=== PATIENT | female | born 1985 | race Caucasian/White ===

== ENCOUNTER 2017-08-22 16:40 | Emergency (ER) | payer SELFPAY ==
--- NOTE | 2017-08-22 18:02 | ER Document Report ---
ED Medical Screen (RME) - General Chief Complaint: Drug Abuse Stated Complaint: SUBSTANCE ABUSE Time Seen by Provider: 08/22/17 17:54 Notes: 31-year-old female past medical history heroin abuse (last used 24 hours ago) here with complaints of diarrhea and feeling anxious. She states that she is seeking help and would like to quit heroin for good. She states that she thinks she is several months and cannot remember date of her last menses. She denies any abdominal pain vaginal bleeding/discharge nausea vomiting. She is here voluntarily. EXAM Gravid abdomen Anxious appearing TRAVEL OUTSIDE OF THE U.S. IN LAST 30 DAYS: No - Related Data Allergies/Adverse Reactions: Penicillins Allergy (Verified 08/22/17 16:46) Home Medications: Current Home Medications No Home Medications 08/22/17 [History] Past Medical History - Social History Frequency of alcohol use: Rare Drug Abuse: Cocaine, Heroin Renal/ Medical History: Denies: Hx Peritoneal Dialysis Musculoskeltal Medical History: Reports Hx Arthritis, Reports Hx Musculoskeletal Deformity - hx of bulging spinal disks in mid/lower back Psychiatric Medical History: Reports: Hx Anxiety Past Surgical History: Reports: Hx Oral Surgery - [place] teeth - Immunizations Hx Diphtheria, Pertussis, Tetanus Vaccination: Yes Physical Exam - Vital signs Vitals: Temp Pulse Resp BP Pulse Ox 98.6 F 85 16 124/85 100 08/22/17 16:57 08/22/17 16:57 08/22/17 16:57 08/22/17 16:57 08/22/17 16:57 Course - Vital Signs Vital signs: Temp Pulse Resp BP Pulse Ox 98.6 F 85 16 124/85 100 08/22/17 16:57 08/22/17 16:57 08/22/17 16:57 08/22/17 16:57 08/22/17 16:57
[2017-08-22 18:33] LABS: APPEARANCE,URINE CLOUDY; BILIRUBIN,URINE NEGATIVE (NEGATIVE); COLOR,URINE YELLOW; GLUCOSE, URINE NEGATIVE (NEGATIVE); KETONES,URINE NEGATIVE (NEGATIVE); LEUKOCYTE ESTERASE,URINE NEGATIVE (NEGATIVE); NITRITE,URINE NEGATIVE (NEGATIVE); PROTEIN,URINE NEGATIVE (NEGATIVE); URINE SPECIFIC GRAVITY 1.018; UROBILINOGEN,URINE NEGATIVE mg/dL (<2.0)
[2017-08-22 18:39] LABS: ABSOLUTE EOSINOPHILS # (AUTO) 0.1 10^3/uL (0.0-0.6); ABSOLUTE LYMPHOCYTES (AUTO) 1.9 10^3/uL (0.5-4.7); ABSOLUTE MONOCYTES (AUTO) 0.4 10^3/uL (0.1-1.4); BASOPHILS % (AUTO) 0.7 % (0-2); EOSINOPHILS % (AUTO) 1.9 % (0-6); HEMATOCRIT 32.1 % (36.0-47.0); HEMOGLOBIN 10.7 g/dL (12.0-15.5); LYMPHOCYTES % (AUTO) 29.2 % (13-45); MEAN CORPUSCULAR HEMOGLOBIN 31.4 pg (27.0-33.4); MEAN CORPUSCULAR HGB CONC 33.4 g/dL (32.0-36.0); MEAN CORPUSCULAR VOLUME 94 fl (80-97); MONOCYTES % (AUTO) 6.6 % (3-13); PLATELET COUNT 203 10^3/uL (150-450); RED BLOOD COUNT 3.41 10^6/uL (3.72-5.28); RED CELL DISTRIBUTION WIDTH 15.8 % (11.5-14.0); SEGMENTED NEUTROPHILS % (AUTO) 61.6 % (42-78); TOTAL CELLS COUNTED % (AUTO) 100 %; WHITE BLOOD COUNT 6.4 10^3/uL (4.0-10.5)
[2017-08-22 18:45] LABS: URINE AMPHETAMINES SCREEN NEGATIVE; URINE BARBITURATES SCREEN NEGATIVE; URINE BENZODIAZEPINES SCREEN NEGATIVE; URINE COCAINE SCREEN UNCONFIRMED POSITIVE; URINE MARIJUANA (THC) SCREEN UNCONFIRMED POSITIVE; URINE METHADONE SCREEN NEGATIVE; URINE PHENCYCLIDINE SCREEN NEGATIVE
[2017-08-22 19:00] LABS: ALANINE AMINOTRANSFERASE 17 U/L (9-52); ALBUMIN 3.6 g/dL (3.5-5.0); ALKALINE PHOSPHATASE 61 U/L (38-126); ANION GAP 10 (5-19); ASPARTATE AMINO TRANSFERASE 12 U/L (14-36); BLOOD UREA NITROGEN 8 mg/dL (7-20); CALCIUM 8.6 mg/dL (8.4-10.2); CARBON DIOXIDE 21 mmol/L (22-30); CHLORIDE 106 mmol/L (98-107); GLUCOSE 82 mg/dL (75-110); POTASSIUM 3.5 mmol/L (3.6-5.0); SODIUM 136.9 mmol/L (137-145); TOTAL PROTEIN 6.4 g/dL (6.3-8.2)
[2017-08-22 19:02] LABS: BILIRUBIN,TOTAL < 0.1 mg/dL (0.2-1.3)
[2017-08-22 19:03] LABS: ACETAMINOPHEN < 10 ug/mL (10-30); ALCOHOL < 10 mg/dL (NONE DETECTED); SALICYLATE < 1.0 mg/dL (2.0-20.0)
[2017-08-22] MEDS ORDERED: POTASSIUM CHLORIDE 10 MEQ TABLET.SA PO ONE (19:23)
--- NOTE | 2017-08-22 20:51 | ER Document Report ---
ED Substance Abuse / Acc. OD - General Chief Complaint: Drug Abuse Stated Complaint: SUBSTANCE ABUSE Time Seen by Provider: 08/22/17 17:54 Mode of Arrival: Ambulatory Information source: Patient Notes: Patient presents reporting that she is concerned that she is . Patient states her last menstrual period was about 5 months ago. Patient is uncertain exactly how far long she may be. Patient does report a history of cocaine, marijuana and heroin abuse. Patient states that she wants to seek treatment for heroin abuse as she just realized that she is . Patient does report some mild diarrhea and feeling anxious. Patient does report cough and cold symptoms for the past 2 weeks. Patient states cough has been productive. Patient denies any fever. Patient does report movement. Patient denies any urinary symptoms, vaginal bleeding or discharge. TRAVEL OUTSIDE OF THE [place].S. IN LAST 30 DAYS: No - HPI Patient complains to provider of: Substance abuse, Substance withdrawal Onset: This morning Onset/Duration: Gradual Quality of pain: Achy Pain Level: 2 Associated Symptoms: Diarrhea. denies: Hurts to breathe, Short of breath, Nausea/vomiting, Tremors, Fainting Similar symptoms previously: Yes Recently seen / treated by doctor: No - Related Data Allergies/Adverse Reactions: Penicillins Allergy (Verified 08/22/17 16:46) Past Medical History - General Information source: Patient - Social History Smoking Status: Current Every Day Smoker Smoking Education Provided: Yes Frequency of alcohol use: Rare Drug Abuse: Cocaine, Heroin, Marijuana Occupation: None Family History: Arthritis, CAD, CVA, DM, Hyperlipidemia, Hypertension, Malignancy, Thyroid Disfunction Patient has suicidal ideation: No Patient has homicidal ideation: No Renal/ Medical History: Denies: Hx Peritoneal Dialysis Musculoskeltal Medical History: Reports Hx Arthritis, Reports Hx Musculoskeletal Deformity - hx of bulging spinal disks in mid/lower back Psychiatric Medical History: Reports: Hx Anxiety Past Surgical History: Reports: Hx Oral Surgery - [place] teeth - Immunizations Hx Diphtheria, Pertussis, Tetanus Vaccination: Yes Review of Systems - Review of Systems Constitutional: No symptoms reported. denies: Fever EENT: Nose congestion Cardiovascular: denies: Chest pain, Dizziness Respiratory: Cough. denies: Short of breath Gastrointestinal: Diarrhea. denies: Abdominal pain, Nausea, Vomiting Genitourinary: No symptoms reported. denies: Dysuria, Flank pain Female Genitourinary: . denies: Vaginal discharge, Vaginal bleeding Musculoskeletal: Back pain Skin: No symptoms reported Hematologic/Lymphatic: No symptoms reported Neurological/Psychological: No symptoms reported. denies: Homicidal ideation, Headaches, Suicidal ideation Physical Exam - Vital signs Vitals: Temp Pulse Resp BP Pulse Ox 98.6 F 85 16 124/85 100 08/22/17 16:57 08/22/17 16:57 08/22/17 16:57 08/22/17 16:57 08/22/17 16:57 - General General appearance: Appears well, Alert In distress: None - HEENT Head: Normocephalic, Atraumatic Eyes: Normal Conjunctiva: Normal Nasal: Normal Mouth/Lips: Normal Mucous membranes: Normal Pharynx: Normal. No: Erythema, Exudate Neck: Normal, Supple. No: Lymphadenopathy - Respiratory Respiratory status: No respiratory distress Chest status: Nontender Breath sounds: Nonproductive cough, Rhonchi. No: Rales, Stridor, Wheezing Chest palpation: Normal - Cardiovascular Rhythm: Regular Heart sounds: S1 appreciated, S2 appreciated Murmur: No - Abdominal Inspection: Gravid female Distension: No distension Bowel sounds: Normal Tenderness: Nontender Organomegaly: No organomegaly - Back Back: Normal, Nontender. No: CVA tenderness - Extremities General upper extremity: Normal inspection, Normal ROM General lower extremity: Normal inspection, Normal ROM - Neurological Neuro grossly intact: Yes Cognition: Normal [place] Coma Scale Eye Opening: Spontaneous [place] Coma Scale Verbal: Oriented [place] Coma Scale Motor: Obeys Commands [place] Coma Scale Total: 15 - Psychological Associated symptoms: Normal affect, Normal mood - Skin Skin Temperature: Warm Skin Moisture: Dry Skin Color: Normal Course - Re-evaluation Re-evalutation: 08/23/17 22:[address] Copeland regarding patient management. Pull outpatient resources available to patient. Dr. Copeland states that patient plans to follow -up with the health department tomorrow as they have a specific program aimed at patients addicted to drugs. Dr. Copeland also recommends starting patient on Celexa 20 mg daily to help with the potential depressive side effects of substance abuse withdrawal. Does not recommend any medications at this time to help with her withdrawal symptoms. Advises that when patient follows up with the health department that they can put her in touch with providers that can provide close follow-up and medication adjustment as needed to help with her symptoms. Patient presently without any suicidal or homicidal ideation. 08/23/17 Discussed patient's diagnostic test results with her. Patient advised of hypokalemia need to reevaluate her lab tests in the next few days. Discussed foods that patient can eat at home to help with this. Patient encouraged to follow-up tomorrow with the health department as planned for further management of her narcotic addiction and impending withdrawal. Patient denies any suicidal or homicidal ideation. Patient encouraged to follow-up for care. - Vital Signs Vital signs: Temp Pulse Resp BP Pulse Ox 98.7 F 84 18 118/76 100 08/22/17 23:19 08/22/17 23:19 08/22/17 23:19 08/22/17 23:19 08/22/17 23:19 - Laboratory Result Diagrams: 08/22/17 18:18 08/22/17 18:18 Laboratory results interpreted by me: 08/22/17 08/22/17 18:18 18:18 RBC 3.41 L Hgb 10.7 L Hct 32.1 L RDW 15.8 H Sodium 136.9 L Potassium 3.5 L Carbon Dioxide 21 L Total Bilirubin < 0.1 L AST 12 L Beta HCG, Quant 6100.00 H Salicylates < 1.0 L Acetaminophen < 10 L 08/23/17 02:51 Labs- Entire Visit 08/22/17 08/22/17 08/22/17 17:00 17:00 18:18 WBC 6.4 RBC 3.41 L Hgb 10.7 L Hct 32.1 L MCV 94 MCH 31.4 MCHC 33.4 RDW 15.8 H Plt Count 203 Seg Neutrophils % 61.6 Lymphocytes % 29.2 Monocytes % 6.6 Eosinophils % 1.9 Basophils % 0.7 Absolute Neutrophils 4.0 Absolute Lymphocytes 1.9 Absolute Monocytes 0.4 Absolute Eosinophils 0.1 Absolute Basophils 0.0 Sodium Potassium Chloride Carbon Dioxide Anion Gap BUN Creatinine Est GFR ( Amer) Est GFR (Non-Af Amer) Glucose Calcium Total Bilirubin Direct Bilirubin Neonat Total Bilirubin Neonat Direct Bilirubin Neonat Indirect Bili AST ALT Alkaline Phosphatase Total Protein Albumin Beta HCG, Quant Total Beta HCG Urine Color YELLOW Urine Appearance CLOUDY Urine pH 9.0 Ur Specific [place] 1.018 Urine Protein NEGATIVE Urine Glucose (UA) NEGATIVE Urine Ketones NEGATIVE Urine Blood NEGATIVE Urine Nitrite NEGATIVE Urine Bilirubin NEGATIVE Urine Urobilinogen NEGATIVE Ur Leukocyte Esterase NEGATIVE Urine WBC (Auto) 0 Urine RBC (Auto) 1 U Hyaline Cast (Auto) 1 Urine Bacteria (Auto) TRACE Squamous Epi Cells Auto 2 Urine Mucus (Auto) RARE Urine Ascorbic Acid NEGATIVE Salicylates Urine Opiates Screen UNCONFIRMED POSITIVE Urine Methadone Screen NEGATIVE Acetaminophen Ur Barbiturates Screen NEGATIVE Ur Phencyclidine Scrn NEGATIVE Ur Amphetamines Screen NEGATIVE U Benzodiazepines Scrn NEGATIVE Urine Cocaine Screen UNCONFIRMED POSITIVE U Marijuana (THC) Screen UNCONFIRMED POSITIVE Serum Alcohol 08/22/17 18:18 WBC RBC Hgb Hct MCV MCH MCHC RDW Plt Count Seg Neutrophils % Lymphocytes % Monocytes % Eosinophils % Basophils % Absolute Neutrophils Absolute Lymphocytes Absolute Monocytes Absolute Eosinophils Absolute Basophils Sodium 136.9 L Potassium 3.5 L Chloride 106 Carbon Dioxide 21 L Anion Gap 10 BUN 8 Creatinine 0.53 Est GFR ( Amer) > 60 Est GFR (Non-Af Amer) > 60 Glucose 82 Calcium 8.6 Total Bilirubin < 0.1 L Direct Bilirubin Neonat Total Bilirubin Not Reportable Neonat Direct Bilirubin Not Reportable Neonat Indirect Bili Not Reportable AST 12 L ALT 17 Alkaline Phosphatase 61 Total Protein 6.4 Albumin 3.6 Beta HCG, Quant 6100.00 H Total Beta HCG POSITIVE Urine Color Urine Appearance Urine pH Ur Specific [place] Urine Protein Urine Glucose (UA) Urine Ketones Urine Blood Urine Nitrite Urine Bilirubin Urine Urobilinogen Ur Leukocyte Esterase Urine WBC (Auto) Urine RBC (Auto) U Hyaline Cast (Auto) Urine Bacteria (Auto) Squamous Epi Cells Auto Urine Mucus (Auto) Urine Ascorbic Acid Salicylates < 1.0 L Urine Opiates Screen Urine Methadone Screen Acetaminophen < 10 L Ur Barbiturates Screen Ur Phencyclidine Scrn Ur Amphetamines Screen U Benzodiazepines Scrn Urine Cocaine Screen U Marijuana (THC) Screen Serum Alcohol < 10 - Diagnostic Test Radiology reviewed: Reports reviewed Discharge - Discharge Clinical Impression: Intrauterine , Heroin abuse, Cocaine abuse, Hypokalemia Condition: Stable Disposition: HOME, SELF-CARE Instructions: Hypokalemia ([facility]), ([facility]) Additional Instructions: Return immediately for any new or worsening symptoms Followup with your primary care provider, call tomorrow to make a followup appointment Follow-up with the health department tomorrow as planned for their CC program , [email or web address] [facility] [email or web address].[email or web address] Prescriptions: Citalopram Hydrobromide [Celexa 20 mg Tablet] 20 mg PO DAILY #7 tablet [facility] - Follow up tomorrow
--- NOTE | 2017-08-22 21:08 | RADIOLOGY REPORT (SQ) ---
EXAM DESCRIPTION: CHEST PA/LAT COMPLETED DATE/TIME: 08/22/2017 8:48 pm REASON FOR STUDY: cough COMPARISON: 11/07/2015 EXAM PARAMETERS: NUMBER OF VIEWS: two views TECHNIQUE: Digital Frontal and Lateral radiographic views of the chest acquired. RADIATION DOSE: NA LIMITATIONS: none FINDINGS: LUNGS AND PLEURA: No acute opacities, masses or pneumothorax. No pleural effusion. MEDIASTINUM AND HILAR STRUCTURES: No masses or contour abnormalities. HEART AND VASCULAR STRUCTURES: Heart normal size. No evidence for failure. BONES: No acute findings. HARDWARE: None in the chest. OTHER: No other significant finding. IMPRESSION: NO SIGNIFICANT RADIOGRAPHIC FINDING IN THE CHEST. TECHNICAL DOCUMENTATION: JOB ID: [id number] [place]-72 2010 [employer]- All Rights Reserved
--- NOTE | 2017-08-22 21:10 | RADIOLOGY REPORT (SQ) ---
EXAM DESCRIPTION: U/S OB 14+ TRNABD 1GES W/O DOP COMPLETED DATE/TIME: 08/22/2017 8:51 pm REASON FOR STUDY: ; eval dates COMPARISON: None. TECHNIQUE: Limited transabdominal grayscale ultrasound for evaluation of specific requested obstetri le parameters. LIMITATIONS: None. FINDINGS: Live intrauterine with composite ultrasound age 19 weeks 5 days. OLY 01/11/2018 CERVICAL LENGTH: 2.4 cm Closed. SHELIA: Normal. . FHR: 158 beats per minute. PRESENTATION: Cephalic. OTHER: Posterior placenta. IMPRESSION: LIMITED OBSTETRICAL ULTRASOUND WITH MEASURED PARAMETERS DELINEATED ABOVE. Trimester of : Second trimester - 13 weeks 1 day to 27 weeks 6 days. TECHNICAL DOCUMENTATION: JOB ID: [id number] [place]-72 2010 [email or web address]- All Rights Reserved
--- NOTE | 2017-08-22 21:54 | PSYCHOLOGICAL NOTE ---
Psych Note - Psych Note Psych Note: Met with Patient via VSEE/IPAD for consult. Patient reported she was prescribed percocet 7.5 mg tid from 2010 -Jun 2016 before she was "cut off" by her pain management physician because her drug screen was positive for benzodiazepines. She reported she started injecting heroin about one month later, 3/4-1 gram daily. Patient reported she started using cocaine 3-4 months ago, snorting 1/2-3 /4 gram 3-4 times per week. She stated she had a previous cocaine addiction but stopped on her own without receiving treatment. Patient also reported a history of adderall use (prescribed) approximately 1 year ago. Patient stated she recently found out she was , and believes she is about 5-6 months along. She stated she wants substance abuse treatment, as she wanted to be healthy for her baby. She indicated she is returning to [facility] this weekend where her father lives and would like to get into treatment in that area. Patient denied any previous substance abuse treatment or mental health treatment. She denied current or previous suicidal ideation, intent, or plan. Patient reported a number of stressors in the past year but indicated she has a support system in the [facility] and has a current place to stay in [facility]. Patient was alert and oriented to person, place, time and circumstance. Mood was euthymic and cooperative. Affect was mood congruent. She denied suicidal / homicidal ideation, intent or plan. She denied past or present psychosis. No delusions were noted. Thought processes were organized, linear, and rational. Conversational speech was within normal limits for rate, tone, and prosody. Intellectual abilities were estimated within the average range. Eye contact was well maintained. Attention and concentration were good. Insight, judgment, and impulse control were fair. 1. Opiate Use Disorder, Moderate 2. Cocaine Use Disorder, Moderate 3. Substance Induced Depression and Anxiety 4. (24 weeks) Impression / Plan: Patient is psychiatrically clear for discharge. She denied suicidal / homicidal ideation. She is seeking long-term treatment options for her substance abuse problems. She would like medication for her depression/ anxiety. Discussed with Patient Medication Assisted Treatment Pros/ Cons and provided her with multiple resources in and out of the area for treatment. [facility] Psychiatrist recommends Celexa 20 mg daily. Patient was advised to follow up with her RIGGER APPRENTICE particularly given the risk of SSRIs to unborn babies. Patient agreed to follow-up with the Health Department tomorrow. ED Physician in agreement with recommendation and disposition. Referrals provided to Patient: 1. [facility]- [facility] a. [email or web address] 2. [facility] a. [email or web address] 3. [facility]- a. www.[facility]
[2017-08-22 23:23] VITALS: BP 118/76
--- NOTE | 2017-08-23 07:57 | EKG REPORT ---
SEVERITY:- NORMAL ECG - SINUS RHYTHM : Confirmed by: Patsy Saba MD 23-Aug-2017 07:57:21
== END 2017-08-22 23:23 | disposition home or self-care (01) ==
LOC: ER 16:40
DX: O99.322 Drug use complicating pregnancy, second trimester (principal); F11.10 Opioid abuse, uncomplicated; F14.10 Cocaine abuse, uncomplicated; F12.10 Cannabis abuse, uncomplicated; O99.282 Endocrine, nutritional and metabolic diseases complicating pregnancy, second trimester; E87.6 Hypokalemia; O99.332 Smoking (tobacco) complicating pregnancy, second trimester; O26.892 Other specified pregnancy related conditions, second trimester; R19.7 Diarrhea, unspecified; R05 Cough; R09.81 Nasal congestion; O99.342 Other mental disorders complicating pregnancy, second trimester; F41.9 Anxiety disorder, unspecified; Z3A.00 Weeks of gestation of pregnancy not specified; Z3A.24 24 weeks gestation of pregnancy; Z88.0 Allergy status to penicillin
CPT/HCPCS: 36415; 71020; 76805; 80053; 80307; 81001; 84702; 85025; 93005; 93010; 99284

== ENCOUNTER 2019-04-14 19:20 | Emergency (ER) | payer MEDICAID ==
[2019-04-14 19:51] VITALS: BP 130/94
[2019-04-14] MEDS ORDERED: FAMOTIDINE 20 MG TABLET PO ONE (20:43)
[2019-04-14] MEDS ORDERED: NAPROXEN 250 MG TABLET PO ONE (20:43)
--- NOTE | 2019-04-14 20:48 | ER Document Report ---
HPI - HPI Time Seen by Provider: 04/14/19 20:43 Pain Level: 3 Context: Patient is a 33-year-old female that comes emergency department for chief complaint of fall. She states she was walking down steps when she slipped because of her socks and she landed on her lower back and slid down several steps. The steps were covered with a rug. She states that she got up, felt okay, however she is developing pain in her lower back. She denies shooting pain down her legs, focal numbness or weakness, incontinence, head injury, or any other injuries. She is not on a blood thinner. She takes methadone to avoid opiate withdrawal because of a history of treatment for chronic back pain, has never had back surgery, denies , denies medical history otherwise. - REPRODUCTIVE Reproductive: DENIES: : Past Medical History - General Information source: Patient - Social History Smoking Status: Never Smoker Frequency of alcohol use: None Drug Abuse: None Lives with: Family Family History: Arthritis, CAD, CVA, DM, Hyperlipidemia, Hypertension, Malignancy, Thyroid Disfunction Renal/ Medical History: Denies: Hx Peritoneal Dialysis Musculoskeletal Medical History: Reports Hx Arthritis, Reports Hx Musculoskeletal Deformity - hx of bulging spinal disks in mid/lower back Psychiatric Medical History: Reports: Hx Anxiety Past Surgical History: Reports: Hx Oral Surgery - [place] teeth - Immunizations Hx Diphtheria, Pertussis, Tetanus Vaccination: Yes Vertical Provider Document - CONSTITUTIONAL General Appearance: WD/WN, No Apparent Distress - INFECTION CONTROL TRAVEL OUTSIDE OF THE [place].S. IN LAST 30 DAYS: No - HEENT HEENT: Atraumatic, Normal ENT Exam, Normocephalic - NECK Neck: Normal Inspection - RESPIRATORY Respiratory: Breath Sounds Normal, No Respiratory Distress, Chest Non-Tender - CARDIOVASCULAR Cardiovascular: Regular Rate, Regular Rhythm - GI/ABDOMEN Gastrointestinal: Abdomen Soft, Abdomen Non-Tender. negative: Abdomen Tender - No signs of trauma - BACK Back: negative: Normal Inspection - Tender over the lumbar area generally, mainly over the mid to lower lumbar. No signs of trauma. No saddle anesthesia. Normal upper and lower extremity range of motion, normal strength, normal distal neurovascular exam. - MUSCULOSKELETAL/EXTREMETIES Musculoskeletal/Extremeties: MAEW, FROM, Non-Tender - NEURO Level of Consciousness: Awake, Alert, Appropriate Motor/Sensory: No Motor Deficit, No Sensory Deficit - DERM Integumentary: Warm, Dry, No Rash Course - Re-evaluation Re-evalutation: Patient has tenderness over the lower lumbar area generally, however there is no bruising or severe pain. Patient ambulates without any difficulty, patient is not in any distress. No other reported injuries, no other signs of trauma. X-ray imaging does show some chronic abnormalities with L5, patient was provided with a report and this was discussed, however there are no acute findings. Patient will be treated symptomatically, discussed expectations, follow-up, and return precautions. Patient states understanding and agreement, stable at time of discharge. - Vital Signs Vital signs: Temp Pulse Resp BP Pulse Ox 98.4 F 82 20 130/94 H 04/14/19 19:50 04/14/19 19:50 04/14/19 19:50 04/14/19 19:50 - Diagnostic Test Radiology reviewed: Image reviewed, Reports reviewed Discharge - Discharge Clinical Impression: Fall Qualifiers: Encounter type: initial encounter Qualified Code(s): W19.XXXA - Unspecified fall, initial encounter Lower back pain Qualifiers: Chronicity: acute Back pain laterality: bilateral Sciatica presence: without sciatica Qualified Code(s): M54.5 - Low back pain Condition: Stable Disposition: HOME, SELF-CARE Additional Instructions: Your evaluation and imaging are reassuring. No new concerning findings are seen. You will likely have soft tissue injury pain and muscle soreness/spasm from the injury. I recommend rest, avoid lifting or twisting if possible, apply heat to the area, take anti-inflammatory and take the prescribed diazepam as a muscle relaxer only at night. Symptoms should resolve with time. Follow-up with your primary provider. Return if you worsen including numbness, severe worsening pain, inability to control your bowel or bladder, or any other concerning or worsening symptoms. Prescriptions: Diazepam [Valium 5 mg Tablet] 1 - 2 tab PO TID PRN #10 tablet PRN Reason: Naproxen 500 mg PO BID PRN #20 tablet PRN Reason:
--- NOTE | 2019-04-14 22:08 | RADIOLOGY REPORT (SQ) ---
EXAM DESCRIPTION: XR LUMBAR SPINE ANTEROPOSTERIOR, LATERAL, AND OBLIQUES COMPLETED DATE/TME: 04/14/2019 20:43 CLINICAL HISTORY: 33 years, Female, fall, pain COMPARISON: None. NUMBER OF VIEWS: 5 TECHNIQUE: 5 view lumbar spine LIMITATIONS: None. FINDINGS: Spina bifida occulta noted at the L5 level. Diminutive 12th ribs. Vertebral body height and alignment is preserved. There are no pars defects. The disc spaces are maintained. Transitional L5 segment noted. IMPRESSION: No evidence for acute osseous abnormality copyright 2010 [email or web address]- All Rights Reserved
== END 2019-04-14 22:45 | disposition home or self-care (01) ==
LOC: ER 19:20
DX: M54.5 Low back pain (principal); W10.9XXA Fall (on) (from) unspecified stairs and steps, initial encounter; Q76.0 Spina bifida occulta; Z79.891 Long term (current) use of opiate analgesic
CPT/HCPCS: 72110; J3490 ×2